=== PATIENT | male | born 2005 | race American Indian/Alaskan Native ===

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

== ENCOUNTER 2023-11-16 21:41 | Emergency (ER) | payer OTHER, BC, SELFPAY ==
[2023-11-16 21:54] VITALS: BP 169/52; PULSE 83; RESP 15; TEMP 36.6; O2SAT 100
--- NOTE | 2023-11-17 00:36 | ED.WOUNDLAC ---
HPI - Wound/Laceration General Chief Complaint: Wound/Laceration Stated Complaint: L pointer finger lac Time Seen by Provider: 11/17/23 00:00 Source: patient Mode of arrival: ambulatory Limitations: no limitations History of Present Illness HPI narrative: This is a 18-year-old male that presents to the emergency department for laceration of the left 2nd finger sustained just prior to arrival. Reports he was washing dishes at work and accidentally cut his finger. Reports bleeding and pain to the area. Denies decreased range of motion or numbness. Related Data Allergies Allergy/AdvReac Type Severity Reaction Status Date / Time No Known Allergies Allergy Verified 11/17/23 00:15 Review of Systems Review of Systems: CONSTITUTIONAL: Denies fever SKIN: Reports laceration All systems reviewed & are unremarkable except as noted in HPI and below PMFSH Past Medical History Medical History (Updated 11/17/23 @ 00:41 by Meche Noriega PA-C) No active medical problems Social History Social History Substance use type: does not use Exam Narrative: GENERAL: Well-appearing, well-nourished, and in no acute distress. HEAD: Normocephalic, atraumatic. EYES: EOMI. EXTREMITIES: Normal range of motion. No edema or obvious deformity. 1cm linear laceration into subcutaneous tissue to the left 2nd finger distal phalanx SKIN: Warm, dry, no rash. NEURO: No focal deficits. Alert and oriented x3. PSYCH: Normal mood and affect Course Course Emergency Course: Patient and family educated on wound care Vital Signs Vital signs: Vital Signs Temperature 98 F 11/16/23 21:54 Pulse Rate 83 11/16/23 21:54 Respiratory Rate 15 11/16/23 21:54 Blood Pressure 169/52 H 11/16/23 21:54 Pulse Oximetry 100 11/16/23 21:54 Oxygen Delivery Room Air 11/16/23 21:54 Temperature 98 F 11/16/23 21:54 Pulse Rate 83 11/16/23 21:54 Respiratory Rate 15 11/16/23 21:54 Blood Pressure 169/52 H 11/16/23 21:54 Pulse Oximetry 100 11/16/23 21:54 Oxygen Delivery Room Air 11/16/23 21:54 MDM - Wound/Laceration MDM Narrative Medical decision making narrative: Patient presents to the ER for laceration to the left second finger sustained just prior to arrival. His wound was irrigated and closed with suture. He was educated on further wound care. He is to follow up with PCP. He was given warnings to return to the ER Differential Diagnosis Differential diagnosis: Likely laceration, abrasion and avulsion of skin Critical Care Time Critical Care Time Critical Care Time: No Discharge Plan Discharge Clinical Impression: Laceration Patient Disposition: Home, Self-Care Condition: Stable Instructions: Laceration (ED) Additional Instructions: Return to the emergency department if you experience fever, redness or swelling of your wound, abnormal drainage from your wound, or any other symptoms that are concerning to you. Apply antibiotic ointment daily. Do not soak the wound. Clean with mild soap and water daily Follow-up with your primary care doctor for suture removal in 10-14 days. Follow-up/Referrals: Zohaib,MD Luis Enrique [Primary Care Provider] - 2 Weeks
== END 2023-11-17 00:50 | disposition home or self-care (01) ==
LOC: ANHED 11-17 00:44
PROVIDERS: Emergency Provider Physician Assistant; PCP Family Medicine
DX: S61.211A Laceration without foreign body of left index finger without damage to nail, initial encounter (principal); W27.4XXA Contact with kitchen utensil, initial encounter; Y93.G1 Activity, food preparation and clean up
CPT/HCPCS: 12001; 99282